=== PATIENT | male | born 1955 | race Caucasian/White ===

== ENCOUNTER 2018-08-25 09:15 | Inpatient (IN) | payer MEDICAID ==
[~2018-08-25] VITALS: Ht 193 cm; Wt 73.9 kg
[2018-08-25] MEDS ORDERED: TRAZODONE HCL150 MG PO (09:38)
[2018-08-25] MEDS ORDERED: LISINOPRIL30 MG PO (09:38)
[2018-08-25] MEDS ORDERED: SEROQUEL400 MG PO (09:38)
[2018-08-25 10:17] LABS: ALBUMIN 5.1 g/dL (3.4-5.0); ANION GAP 22.4 mmol/L (8-16); BILIRUBIN - TOTAL 0.81 mg/dL (0.2-1.3); CALCIUM 10.2 mg/dL (8.5-10.1); CARBON DIOXIDE 23.1 mmol/L (21.0-32.0); CREATININE - SERUM 2.8 mg/dL (0.6-1.3); POTASSIUM - SERUM 3.5 mmol/L (3.5-5.1); PROTEIN - SERUM 9.2 g/dL (6.4-8.2)
[2018-08-25 10:20] LABS: UDS - AMPHET POSITIVE QUAL (NEGATIVE); UDS - BARB NEGATIVE QUAL (NEGATIVE); UDS - BENZO NEGATIVE QUAL (NEGATIVE); UDS - COCAINE POSITIVE QUAL (NEGATIVE); UDS - OPIATE NEGATIVE QUAL (NEGATIVE); UDS - PCP NEGATIVE QUAL (NEGATIVE); UDS - THC NEGATIVE QUAL (NEGATIVE)
[2018-08-25 10:27] LABS: BASOPHILS 0.1 % (0-2); EOSINOPHILS 0.1 % (0-7); HEMOGLOBIN 14.5 g/dL (13.5-17.5); IMMATURE GRANULOCYTES 0.2 % (0-5); LYMPHOCYTES 17.4 % (15-50); MCH 31.5 pg (26.0-34.0); MCHC 36.3 g/dL (31.0-37.0); MCV 86.8 fL (80.0-100.0); MEAN PLATELET VOLUME 10.7 fL (7.4-10.4); MONOCYTES 10.1 % (2-11); NEUTROPHILS 72.1 % (40-80); PLATELET COUNT 335 10x3/uL (130-400); RBC 4.61 10x6/uL (4.20-6.10); RDW 12.5 % (11.5-14.5)
[2018-08-25 10:40] LABS: APPEARANCE CLEAR (CLEAR); COLOR YELLOW (YELLOW); SPECIFIC GRAVITY 1.025 (1.005-1.020)
[2018-08-25 10:42] LABS: BACTERIA FEW /hpf (NONE SEEN); BILIRUBIN NEGATIVE (NEGATIVE); EPITHELIAL CELLS 0-5 /hpf (0-5); GLUCOSE NEGATIVE (NEGATIVE); HYALINE CAST 0-5 /lpf (NONE SEEN); KETONE MODERATE mg/dL (NEGATIVE); MUCUS >1+ /lpf (NONE SEEN); NITRITE NEGATIVE (NEGATIVE); PROTEIN NEGATIVE (NEGATIVE); RED CELLS - URINE OCC /hpf (0-5)
[2018-08-25 16:20] LABS: ALBUMIN 4.1 g/dL (3.4-5.0); BILIRUBIN - TOTAL 0.9 mg/dL (0.2-1.3); CALCIUM 9.1 mg/dL (8.5-10.1); CARBON DIOXIDE 22.3 mmol/L (21.0-32.0); CREATININE - SERUM 2.1 mg/dL (0.6-1.3); POTASSIUM - SERUM 3.3 mmol/L (3.5-5.1); PROTEIN - SERUM 7.5 g/dL (6.4-8.2)
[2018-08-25 17:59] LABS: CREATINE KINASE 5532 UL (21-232)
--- NOTE | 2018-08-25 17:59 | NUR ---
NS BOLUS COMPLETED 042
--- NOTE | 2018-08-25 18:30 | NUR ---
ACCORDING TO DAY SHIFT NURSE STATE:" PT ARRIVED TO M2 1830 WITH HOSPITAL STAFF PT IS ALERT AND ORIENTED.
[2018-08-25 18:39] LABS: CKMB 32.5 U/L (0.0-3.6)
[2018-08-25 20:00] VITALS: BP 130/78
--- NOTE | 2018-08-25 20:14 | NUR ---
PT C/O PAIN IN TUNG AT A LEVEL OF 9. CALLED [facility] SUPERINTENDENT ORDERED PAIN MED FOR PT.
[2018-08-26] VITALS: BP 114/75
--- NOTE | 2018-08-26 00:15 | NUR ---
PT IV INFILTRATED, RESTART IV PLACED IN RIGHT AC ON 1ST ATTEMPT.
--- NOTE | 2018-08-26 03:14 | NUR ---
REST QUIELTY IN BED. EYE CLOSE. CALL LIGHT IN REACH.
[2018-08-26 05:00] VITALS: BP 117/72
--- NOTE | 2018-08-26 06:15 | NUR ---
I have reviewed this patient and I concur with the Shift Assessment completed by the Licensed Practical Nurse today this shift.
--- NOTE | 2018-08-26 06:27 | NUR ---
UA COLLECTED AND SENT IT TO LAB.
--- NOTE | 2018-08-26 07:33 | NUR ---
ROUNDING DONE WITH PATIENT LAYING ON BACK IN STREET CLOTHES AND SHOES. RIGHT FA PIV SEEN WITH NS INFUSING AT 125, LEFT AC PIC SALINE LOCK. ON EP, NO LAB VALUES BACK YET. ON ROOM AIR. ENCOURAGED PATIENT TO PLACE HOSPITAL GOWN ON.
[2018-08-26 08:12] LABS: ALBUMIN 3.4 g/dL (3.4-5.0); ANION GAP 17.7 mmol/L (8-16); BILIRUBIN - TOTAL 0.51 mg/dL (0.2-1.3); CALCIUM 8.6 mg/dL (8.5-10.1); CREATININE - SERUM 1.3 mg/dL (0.6-1.3); MAGNESIUM - SERUM 2.4 mg/dL (1.8-2.4); POTASSIUM - SERUM 3.7 mmol/L (3.5-5.1); PROTEIN - SERUM 6.6 g/dL (6.4-8.2)
--- NOTE | 2018-08-26 08:55 | NUR ---
COMPLAINTS OF PAIN TO LEFT SIDE OF MOUTH. WITH FLASHLIGHT, THERE ARE SOME WHITE PATCHES SEEN WITH ALSO SOME ROTTEN AND BROKEN TEETH. PATIENT IS JEKING IN THE BED STATING THAT HE IS HURTING. CALL PLACED TO [facility] FOR FURTHER ORDERS. AWAITING CALL BACK.
[2018-08-26 08:58] LABS: BASOPHILS 0.1 % (0-2); EOSINOPHILS 0.3 % (0-7); HEMATOCRIT 34.6 % (42.0-54.0); HEMOGLOBIN 12.7 g/dL (13.5-17.5); IMMATURE GRANULOCYTES 0.2 % (0-5); LYMPHOCYTES 18.6 % (15-50); MCH 31.3 pg (26.0-34.0); MCHC 36.7 g/dL (31.0-37.0); MCV 85.2 fL (80.0-100.0); MEAN PLATELET VOLUME 10.3 fL (7.4-10.4); MONOCYTES 9.9 % (2-11); NEUTROPHILS 70.9 % (40-80); PLATELET COUNT 277 10x3/uL (130-400); RBC 4.06 10x6/uL (4.20-6.10); RDW 12.5 % (11.5-14.5); WBC 14.9 10x3/uL (4.8-10.8)
--- NOTE | 2018-08-26 09:21 | NUR ---
[facility] TO CALL BACK WITH NEW ORDERS.
[2018-08-26 09:55] VITALS: BP 113/49
--- NOTE | 2018-08-26 11:11 | NUR ---
IN ASSESSMENT, PATIENT HAS A RED AREA WITH WHITENESS TO RIGHT KNEE. STATES THAT HE DOES NOT KNOW HOW IT GOT THERE.
[2018-08-26 12:49] VITALS: BP 139/76
[2018-08-26 13:26] VITALS: BMI 21.9
--- NOTE | 2018-08-26 13:39 | NUR ---
RESTING QUITELY WITH EYES CLOSED, RESP EVEN. BED ALARM IN USE.
--- NOTE | 2018-08-26 15:40 | NUR ---
PATIENT IS REQUESTING A PAIN PILL FOR HIS TOOTH PAIN. THERE IS NONE ON THE EMAR. PAGE INTO [facility] FOR PAIN PILL. BED ALARM IS ON AND SET. PATIENT WAS ASSISTED TO STAND AT BEDSIDE TO EMPTY HIS BLADDER, VERY JERKY AND UNSTEADY TO HIS FEET. AWAITING CALL BACK, HE STATES HE DOES NOT WANT THE ORAL MOUTHWASH.
--- NOTE | 2018-08-26 15:47 | NUR ---
[facility] TO CALL BACK WITH NEW ORDERS.
--- NOTE | 2018-08-26 17:18 | NUR ---
RESTING WITH EYES CLOSED. SUPPER TRAY ON BEDSIDE TABLE. BED ALARM IS SET AND ON. WILL CONTINUE TO FOLLOW AND ASSESS FOR NEEDS.
[2018-08-26 17:57] VITALS: BP 138/66
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
[2018-08-26 20:00] VITALS: BP 119/69
[2018-08-27] VITALS: BP 145/83
[2018-08-27 04:00] VITALS: BP 153/94
--- NOTE | 2018-08-27 04:39 | NUR ---
I have reviewed this patient and I concur with the Shift Assessment completed by the Licensed Practical Nurse today this shift.
[2018-08-27 06:14] LABS: ALBUMIN 2.9 g/dL (3.4-5.0); ALKALINE PHOSPHATASE 44 U/L (46-116); ALT (SGPT) 43 U/L (10-68); BILIRUBIN - TOTAL 0.37 mg/dL (0.2-1.3); CALCIUM 8.2 mg/dL (8.5-10.1); CARBON DIOXIDE 24.9 mmol/L (21.0-32.0); CHLORIDE - SERUM 110 mmol/L (98-107); GLUCOSE 92 mg/dL (74-106); MAGNESIUM - SERUM 2.3 mg/dL (1.8-2.4); POTASSIUM - SERUM 3.3 mmol/L (3.5-5.1); PROTEIN - SERUM 5.9 g/dL (6.4-8.2); SODIUM 146 mmol/L (136-145)
[2018-08-27 06:15] LABS: CALC OSMOLALITY 291 mosm/kg (275-300); CREATININE - SERUM 0.9 mg/dL (0.6-1.3); UREA NITROGEN 14 mg/dL (7-18); eGFR NON AFRICAN AMERICAN > 90 mL/min (90-120)
--- NOTE | 2018-08-27 07:07 | NUR ---
3.3 SERUM POTASSIUM TREATED ORDERED
--- NOTE | 2018-08-27 09:30 | NUR ---
ASSISTED PATIENT OOB TO RESTROOM. NO DISTRESS. IV FLUIDS INFUSING ORDERED AT THIS TIME.
[2018-08-27 10:08] VITALS: BP 159/103
--- NOTE | 2018-08-27 10:55 | NUR ---
RECEIVED REPORT. ASSUMED CARE OF PATIENT. CALL LIGHT WITHIN REACH. PATIENT RESTING WITH EYES CLOSED. IV FLUIDS INFUSING ORDERED. NO DISTRESS. RESP EVEN AND UNLABORED.
--- NOTE | 2018-08-27 11:16 | NUR ---
ELECTROLYTE PROTOCOL EFFECTIVE, K+ 3.6
--- NOTE | 2018-08-27 12:00 | NUR ---
CONSUMED NO AM MEAL. RESTING WITH EYES CLOSED. DENIES NEEDS. NO DISTRESS. ENCOURAGED PATIENT TO EAT NOON MEAL WHEN DELIVERED.
[2018-08-27 13:50] VITALS: BP 155/85; Ht 193 cm; Wt 73.9 kg
--- NOTE | 2018-08-27 17:24 | NUR ---
MEDICATED FOR TREMORS AT THIS TIME. NO DISTRESS.
[2018-08-27 18:55] VITALS: BP 159/102
--- NOTE | 2018-08-27 19:40 | NUR ---
RECEIVED REPORT, WILL ASSUME CARE OF PT, PT IS SLEEPING, NO DISTRESS NOTICE, BED IS LOW, SRX2, CALL LIGHT IN REACH, WILL CONTINUE PLAN OF CARE
[2018-08-27 20:00] VITALS: BP 159/103
[2018-08-28] VITALS: BP 166/91
--- NOTE | 2018-08-28 03:19 | NUR ---
I have reviewed this patient and I concur with the Shift Assessment completed by the Licensed Practical Nurse today this shift.
[2018-08-28 04:00] VITALS: BP 162/110
--- NOTE | 2018-08-28 07:00 | NUR ---
RECEIVED REPORT. ASSUMED CARE OF PATIENT. CALL LIGHT WITHIN REACH. NO DISTRESS. RESTING WITH EYES CLOSED. RESP EVEN AND UNLABORED. SR UP FOR SAFETY.
--- NOTE | 2018-08-28 08:40 | NUR ---
RESTING IN BED. NO DISTRESS. REFUSED AM MEAL. STATES HE IS NOT HUNGRY. STATES MOUTH PAIN HAS IMPROVED.
[2018-08-28 08:51] VITALS: BP 173/113
[2018-08-28 09:31] LABS: ALBUMIN 3.1 g/dL (3.4-5.0); ALKALINE PHOSPHATASE 53 U/L (46-116); ALT (SGPT) 45 U/L (10-68); BILIRUBIN - TOTAL 0.62 mg/dL (0.2-1.3); CALC OSMOLALITY 286 mosm/kg (275-300); CALCIUM 8.7 mg/dL (8.5-10.1); CARBON DIOXIDE 26.6 mmol/L (21.0-32.0); CHLORIDE - SERUM 107 mmol/L (98-107); CREATININE - SERUM 0.9 mg/dL (0.6-1.3); GLUCOSE 106 mg/dL (74-106); POTASSIUM - SERUM 3.3 mmol/L (3.5-5.1); PROTEIN - SERUM 6.4 g/dL (6.4-8.2); SODIUM 145 mmol/L (136-145); eGFR NON AFRICAN AMERICAN > 90 mL/min (90-120)
[2018-08-28 09:32] LABS: UREA NITROGEN 8 mg/dL (7-18)
--- NOTE | 2018-08-28 10:28 | NUR ---
ELECTROLYTE PROTOCOL INITIATED AT THIS TIME FOR K+ (3.3)
[2018-08-28 12:07] VITALS: BP 152/90
--- NOTE | 2018-08-28 14:22 | NUR ---
IN ROOM TO ASK PT WHO HIS PCP IS. HE STATES IT IS A PHYSICIAN AT [facility] AND WILL PLAN FOLLOW UP THERE.
--- NOTE | 2018-08-28 15:35 | NUR ---
1520 20 GAUGE IV REMOVED FROM RIGHT AC. CATHETER TIP INTACT. NO BLEEDING FROM SITE. 2X2 GAUZE APPLIED AND SECURED WITH BANDAID. TOLERATED IV REMOVAL WELL. ALSO, 20 GAUGE IV REMOVED FROM LEFT WRIST. CATHETER TIP INTACT. NO BLEEDING FROM SITE. 2X2 GAUZE APPLIED AND SECURED WITH BANDAID. TOLERATED IV REMOVAL WELL. PATIENT GIVEN DISCHARGE INSTRUCTIONS AT THIS TIME. VERBALIZED UNDERSTANDING OF ALL INSTRUCTIONS PROVIDED. PATIENT STATES HE DROVE TO THE HOSPITAL AND HIS CAR IS IN THE PARKING LOT AND HE WILL DRIVE HIMSELF HOME.
--- NOTE | 2018-08-28 16:21 | NUR ---
PATIENT HAS BEEN DISCHARGED, GOT HIMSELF DRESSED AND SITTING IN A WHEELCHAIR WAITING TO BE WHEELED DOWNSTAIRS. PATIENT STATES HE NOW DOESN'T FEEL WELL ENOUGH TO DRIVE HOME AND HE DOESN'T HAVE ANY FAMILY OR FRIENDS THAT CAN COME AND HELP HIM. CASE MANAGEMENT CONTACTED.
--- NOTE | 2018-08-28 16:24 | NUR ---
PATIENT BEING SENT HOME IN A TAXIT PER CASE MANAGEMENT.
--- NOTE | 2018-08-28 16:40 | NUR ---
PATIENT LEFT UNIT VIA WHEELCHAIR WITH ALL PERSONAL BELONGINGS. PATIENT IN NO DISTRESS UPON LEAVING UNIT. PATIENT ASSISTED DOWNSTAIR AND LEFT HOSPITAL IN [place]AXI TO HIS ADDRESS LISTED ON CHART.
--- NOTE | 2018-08-29 08:44 | MORECARE ---
CASE MANAGEMENT DISCHARGE SUMMARY PATIENT: NIALL LANG UNIT: [id number] ADM DATE: 08/25/18 AGE: 63 : [birth year] SEX: M ROOM/BED: D.2136 AUTHOR: SAMEER SCHMIDT PHYSICIAN: REFERRING PHYSICIAN: CONNIE HUNTLEY MD DATE OF SERVICE: 08/29/18 Discharge Plan Patient Name: NIALL LANG Facility: [facility]:[place] : 1955 Planned Disposition: Home Anticipated Discharge Date: 08/28/18 Discharge Date: 08/28/2018 Expected LOS: 3 Initial Reviewer: [email or web address] Initial Review Date: 08/29/2018 Generated: 08/29/18 9:44 am Comments DCP- Discharge Planning Updated by [email or web address]: Urmila Wyatt on 08/28/18 3:[address] Patient Name: NIALL LANG Admission Status: ER Accout number: [id number] Admission Date: 08-25-2018 : 1955 Admission Diagnosis: Attending: YUKO, Current LOS: 3 Anticipated DC Date: Planned Disposition: Primary Insurance: MEDICAID [place] Discharge Planning Comments: CM CONSULT FOR RIDE FOR PT. PTS CONTACT LIVES IN [place] .HE STATES HE HAS NO ONE ELSE. CM GOT [employer] TO [employer] WITH A CHARGE OF 8.75 STATED BY HS CoridonI. Advertising Strategist: Urmila Wyatt Patient Name: NIALL LANG Page [phone] at 0844 All edits/amendments must be made on the electronic document DICTATION DATE: 08/29/18 0843 DICTATING TRANSCRIBING MACHINE SERVICER: MARVIN 08/29/18 0843 RPT#: [id number] DC DATE:08/28/18 STATUS: DIS IN [facility] [address] [place] [address] END OF REPORT
--- NOTE | 2018-08-31 11:19 | EC ---
PATIENT:NIALL LANG DATE OF SERVICE: 08/25/18 SEX: M MEDICAL RECORD: [id number] DATE OF : [birth year] LOCATION:D.M2 D.213 AGE OF PATIENT: 63 ADMISSION DATE: 08/25/18 REFERRING PHYSICIAN: INTERPRETING PHYSICIAN: RONIT FAY MD ECHOCARDIOGRAM REPORT ECHO CHARGES 4 ECHO COMPLETE Date: 08/26/18 CLINICAL DIAGNOSIS: LEUDOCYOTSIS/ METH/COCAINE USE/ ASSESS FOR VEGATATION ECHOCARDIOGRAPHIC MEASUREMENTS (adult normal given) AC root (d.<3.7cm) 2.9 cm LV Septum d (<1.2 cm> 1.5 cm Valve Excursion 1.9 cm LV Septum (systole) 1.9 cm Left Atria (s.<4.0cm> 3.1 cm LVPW d(<1.2cm) 1.5 cm RV (d.<2.3cm) 3.4 cm LVPW (sytole) 1.9 cm LV diastole(<5.6CM) 4.0 cm MV E-F(>70mm/sec) cm LV systole 2.2 cm LVOT Diameter 1.8 cm MV exc.(>10mm) 1.5 cm Est.ejection fraction (50-75%) % DOPPLER: LVIT cm/sec A 88.0 cm/sec E 74.0 cm/sec LA cm/sec RVSP 22 mmHg LVOT 92 cm/sec AOP1/2T m/s Asc. Ao 102 cm/sec RVOT 52 cm/sec RA cm/sec PA 115 cm/sec AV Gradient Peak 4.13 mmHg AV Mean 2.35 mmHg AV Area 2.3 cm MV Gradient Peak 5.44 mmHg MV Mean 1.99 mmHg MV Area cm COMMENTS: Hoop Coiler: 2 JANNY MONTESINOS Psych Rn: 1 Dr. Fay TAPE# PACS Pericardial Effusion N DATE OF SERVICE: FINDINGS: 1. Left ventricular chamber size is within normal limits. Left ventricular systolic function is normal. Overall ejection fraction 55% to 60%. 2. Left atrium, right atrium and right ventricular chamber size is within normal limits. 3. Valvular structures have normal structure and motion. 4. Doppler interrogation reveals no significant valvular insufficiency or stenosis. Pulmonary systolic pressure is estimated at 22 mmHg. ECHOCARDIOGRAM REPORT [id number] NIALL LANG 5. No evidence of pericardial effusion or left ventricular thrombus. TRANSINT:[id number] Voice Confirmation ID: [id number] DOCUMENT ID: [id number] RONIT FAY MD at 1119 CC: [id number] DICTATION DATE: 08/26/18 1309 DISTRICT FIRE MANAGEMENT OFFICER: 08/26/18 1546 DIS IN 08/28/18 [facility] [address] [place] [place] [id number]
== END 2018-08-28 17:31 | disposition home or self-care (01) | DRG 683 ==
LOC: D.ER 09:15 → D.M2 17:16 → OBSVTIME 17:17 → D.M2 17:18
PROVIDERS: Family Medicine; ADMIT Family Medicine; ATTEND Family Medicine
DX: N17.9 Acute kidney failure, unspecified (principal); F10.239 Alcohol dependence with withdrawal, unspecified; F14.10 Cocaine abuse, uncomplicated; E87.6 Hypokalemia; I10 Essential (primary) hypertension

== ENCOUNTER 2019-05-24 13:00 | Observation (INO) | payer MEDICAID ==
[2019-05-24] VITALS (7 sets, daily range): BP systolic 179–193; BP diastolic 108–116
[~2019-05-24] VITALS: Ht 193 cm; Wt 77.3 kg
--- NOTE | ~2019-05-24 | HEMODYNAMI ---
PATIENT:NIALL LANG MEDICAL RECORD: [id number] : 59 LOCATION:[facility] D.5 ADMISSION DATE: 05/24/19 Generatedon:05/25/20199:49 Patient name: NIALL LANG Patient #: [id number] SSN: [id number] : 1955 Date of study: 05/25/2019 Page: Of Hemodynamic Procedure Report Patient Data Patient Demographics Procedure consent was obtained First Name: NIALL Gender: Male Last Name: PRECIOUS : 1955 Patient #: [id number] Age: 63 year(s) Race: SSN: [id number] Additional ID: [id number] Contact details [address]: [address] [place] [address] State: [place] City: [place] Zip code: [address] Past Medical History Allergies Allergen Reaction Date Comments Reported Other allergy 05/25/2019 wasps Admission Admission Data Admission Date: 05/24/2019 Admission Time: 13:00 Arrival Date: 05/25/2019 Arrival Time: 0:00 Admit Source: Other Room #: D.2115 Height (in.): 76 BSA: 2.07 (m2) Height (cm.): 193.04 BMI: 20.69 (kg/m2) Weight (lbs.): 170 Weight (kg.): 77.11 Lab Results Lab Result Date: 05/25/2019 Lab Result Time: 0:00 Biochemistry Name Units Result Min Max BUN mg/dl 19 --(----)*- 7 18 Creatinine mg/dl 1.4 --(----)*- 0.6 1.3 eGFR ml/min 55 *-(----)-- 90 120 NONAFRICAN CBC Name Units Result Min Max Hematocrit % 38.1 *-(----)-- 42 54 Hemoglobin g/dl 13 -*(----)-- 13.5 17.5 Procedure Procedure Types Cath Procedure Diagnostic Procedure C [facility] w/Coronaries Sedation Charges Moderate Sedation up to 15 minutes Procedure Description Procedure Date Procedure Date: 05/25/2019 Procedure Start Time: 9:30 Procedure End Time: 9:47 Procedure Staff Name Function Constantine Steiner MD Performing Physician Mercedes Gates RT Monitor Kirsten Azevedo RT Scrub Francesco Sagastume RN Nurse Josef Correa RT Electrician Assistant Procedure Data Cath Procedure Fluoroscopy Diagnostic fluoroscopy Total fluoroscopy Time: 4.1 time: 4.1 min min Diagnostic fluoroscopy Total fluoroscopy dose: 523 dose: 523 mGy mGy Contrast Material Contrast Material Type Amount (ml) Isovue 300 77 Entry Location Entry Primary Successful Side Size Upsize Upsize Entry Closure Julien ccessful Closure Location (Fr) 1 (Fr) 2 (Fr) Remarks Device Remarks Radial Right 6 Fr Mechanical artery Short Compression Estimated blood loss: 5 ml Diagnostic catheters Device Type Used For End Catheter Placement DIAGNOSTIC Axel 110cm Procedure 5Fr catheter ([id number]) DIAGNOSTIC Madison 110cm 5 Left Coronary Fr catheter ([id number]) Angiography Procedure Complications No complications Procedure Medications Medication Administration Route Dosage 0.9% NaCl I.V. 100 ml/hr Oxygen etCO2 Nasal cannula 2 l/min Heparin Flush Bag added to field 2 bags (1000units/500ml NS) Lidocaine 2% added to field 20 Radial Cocktail added to field 1 syringe (Verapamil 2mg/Nitro 400mcg/Heparin 1500units) Versed I.V. 1 mg Fentanyl I.V. 50 mcg Radial Cocktail I.A. 1 syringe (Verapamil 2mg/Nitro 400mcg/Heparin 1500units) Hemodynamics Rest BSA: 2.07 (m2) HGB: 13 (g/dl) O2 Consumption: Estimated: 234.08 (ml/min) O2 Cons umption indexed: Estimated:113.08 (ml/min/m) Heart Rate: 59 (bpm) Pressure Samples Time Site Value (mmHg) Purpose Heart Use Rate(bpm) 9:33 LV 102/17,26 Snapshot 62 9:33 LV 104/20,28 Snapshot 65 Gradients Valve Time Site Site Mean SEP/DFP Peak To Heart Use 1 2 (mmHg) (sec/min) Peak Rate (mmHg) (bpm) Aortic 9:34 LV AO 64 Snapshots Pre Cath Intra NCS Post Cath Vital Signs Time Heart Resp SPO2 etCO2 NIBP Rhythm Pain Sedation Rate (ipm) (%) (mmHg) (mmHg) Status Level (bpm) 9:13:22 64 13 96 0 124/73(91) NSR 0 (11) 10(A) , No pain 9:17:32 63 30 98 30.5 111/67(82) NSR 0 (11) 10(A) , No pain 9:21:40 52 14 97 0 107/60(87) NSR 0 (11) 10(A) , No pain 9:25:46 48 14 97 22.3 97/60(74) NSR 0 (11) 10(A) , No pain 9:29:48 62 10 95 31.2 109/64(80) NSR 0 (11) 9(A) , No pain 9:33:55 51 11 98 20.8 78/50(73) NSR 0 (11) 9(A) , No pain 9:37:53 60 19 94 28.3 88/52(68) NSR 0 (11) 9(A) , No pain 9:41:55 52 10 95 1.4 100/55(80) NSR 0 (11) 10(A) , No pain 9:45:56 65 10 95 39.5 108/63(85) NSR 0 (11) 10(A) , No pain Medications Time Medication Route Dose Verified Delivered Reason Notes Effectiveness by by 9:11:37 0.9% NaCl I.V. 100 Francesco Francesco Per ml/hr Tanika Sagastume physician RN RN 9:11:45 Oxygen etCO2 2 l/min Francesco Francesco for low 02 Nasal Lorigan Lorigan sats cannula RN RN 9:11:56 Heparin Flush added 2 bags Francesco Francesco used for Bag to Lorigan Lorigan procedure (1000units/500ml field RN RN NS) 9:12:08 Lidocaine 2% added 20ml Francesco Francesco for local to vial Lorigan Lorigan anesthetic field RN RN 9:15:47 Radial Cocktail added 1 Francesco Francesco used for (Verapamil to syringe Lorigan Lorigan procedure 2mg/Nitro field RN RN 400mcg/Heparin 1500units) 9:27:20 Versed I.V. 1 mg Francesco Francesco for sedation Tanika Sagastume RN RN 9:27:28 Fentanyl I.V. 50 mcg Francesco Francesco for sedation Tanika Sagastume RN RN 9:33:00 Radial Cocktail I.A. 1 Francesco Constantine for (Verapamil syringe Tanika Steiner MD vasodilation 2mg/Nitro RN 400mcg/Heparin 1500units) Procedure Log Time Note 8:51:47 Diagnostic Cath Status : Elective 8:52:10 Admit Source: Other 8:52:15 Procedure Status Elective Heart Cath (OP). 8:52:24 Josef Correa RT(R) (CV) sent for patient. Start room use. 8:52:26 Time tracking: Regular hours (M-F 7:00 - 5:00) 8:52:32 Plan of Care:Hemodynamics will remain stable., Cardiac rhythm will remain stable., Comfort level will be maintained., Respiratory function will remain adequate., Patient/ family verbilizes understanding of procedure., Procedure tolerated without complication., Recovers from procedure without complications.. 9:03:02 Patient received from Med II to CCL 1 Alert and oriented. Tansferred to table in Supine position. 9:03:09 Signed procedure consent form obtained from patient. 9:03:10 Warm blankets applied, and jocelyn hugger turned on for patient comfort. 9:03:11 Correct patient and procedure confirmed by team. 9:03:12 ECG and BP/O2 sat monitors applied to patient. 9:03:25 Arrival Date: 05/25/2019 12:00:00 AM 9:03:56 Patient Height : 76 inches 9:04:12 Patient Weight : 170 lbs 9:11:37 0.9% NaCl 100 ml/hr I.V. was administered by Francesco Sagastume RN; Per physician; Verbal order read back and verified. 9:11:45 Oxygen 2 l/min etCO2 Nasal cannula was administered by Francesco Sagastume RN; for low 02 sats; Verbal order read back and verified. 9:11:56 Heparin Flush Bag (1000units/500ml NS) 2 bags added to field was administered by Francesco Sagastume RN; used for procedure; Verbal order read back and verified. 9:12:08 Lidocaine 2% 20ml vial added to field was administered by Francesco Sagastume RN; for local anesthetic; Verbal order read back and verified. 9:12:18 Vital chart was started 9:13:17 Baseline sample Acquired. 9:13:22 Rhythm: sinus rhythm 9::25 Full Disclosure recording started 9::26 9:13:34 H&P Date Dictated: 05/25/2019 Within 30 days and on chart.. 9:13:36 Pre-procedure instructions explained to patient. 9:13:37 Pre-op teaching completed and patient verbalized understanding. 9:13:40 Family unavailable. 9:13:46 Patient NPO since Midnight. 9:14:00 Patient allergic to Other allergywasps 9:14:05 Is the patient allergic to Iodine/contrast media? No. 9:14:09 Was the patient premedicated? Yes 9:14:12 Is patient on blood thinner?No 9:14:14 Patient diabetic? No. 9:14:16 ----Pre-sedation anethsthesia assessment.---- 9:14:20 Previous problem with sedation/anesthesia? No ? 9:14:23 Snore? Yes 9:14:26 Sleep apnea? No 9:14:30 Deviated septum? No 9:14:33 Opens mouth fully? Yes 9:14:37 Sticks out tongue? Yes 9:14:42 Airway obstruction? No ? 9:14:45 Dentures? No ? 9:15:47 Radial Cocktail (Verapamil 2mg/Nitro 400mcg/Heparin 1500units) 1 syringe added to field was administered by Francesco Sagastume RN; used for procedure; Verbal order read back and verified. 9:16:25 Pre procedure: right dorsailis pedis pulse 2+ Normal; easily identifiable; not easily obliterated 9:16:31 Modified Vineet's test Ulnar > 7 seconds. 9:17:00 IV patent on arrival in left antecubital with 0.9% NaCl at [facility]. 9:17:49 Lab Result : BUN 19 mg/dl 9:17:49 Lab Result : Creatinine 1.4 mg/dl 9:17:49 Lab Result : eGFR NONAFRICAN 55 ml/min 9:17:49 Lab Result : Hemoglobin 13 g/dl 9:17:49 Lab Result : Hematocrit 38.1 % 9:17:56 Lab results completed and on chart. 9:18:03 Right Radial & Right Groin area was prepped with chlora-prep and draped in sterile fashion 9:18:05 Alarms reviewed by R. N. 9:18:06 Sharps counted by scrub and verified by R.N. 9:18:11 Use device set Radial Dx or PCI 9:18:13 ACIST Syringe (26749) opened to sterile field. 9:18:14 Medline Cath Pack ([id number]) opened to sterile field. 9:18:14 Bag Decanter (2002S) opened to sterile field. 9:18:15 ACIST Hand Control (71560) opened to sterile field. 9:18:16 ACIST Manifold (79469) opened to sterile field. 9:18:19 MBrace Wrist Support ([id number]) opened to sterile field. 9:18:25 NEEDLE Cook 21G 4cm Radial (J25086) opened to sterile field. 9:18:26 EMERALD Guide Wire (570-528) opened to sterile field. 9:18:29 SHEATH 6FR RAIN ([id number]) opened to sterile field. 9:24:56 Risk of Mortality: 0.5 9:25:01 Risk of blood transfusion: 2.9 9:25:06 Risk of KRISTIE: 5.9 9:25:58 Physician arrived 9:25:59 --------ALL STOP TIME OUT------ 9:26:00 Final Timeout: patient, procedure, and site verified with staff and physician. All members of the team are in agreement. 9:26:04 Right Radial & Right Groin site verified by team. 9:26:11 Fire Safety Assessment: A--An alcohol-based skin anteseptic being used preoperatively., C--Open oxygen or nitrous oxide is being used., D--An ESU, laser, or fiber-optic light is being used. 9:26:16 Physical assessment completed. ASA score P 2 - A patient with mild systemic disease as per Constantine Steiner MD. 9:26:23 3a) 45-59 Moderately reduced kidney function. 9:26:29 Maximum allowable contrast dose (3.7 X eGFR X 0.75)152 ml. 9:26:36 Sedation plan: IV Moderate Sedation Medication:Versed, Fentanyl 9:27:20 Versed 1 mg I.V. was administered by Francesco Sagastume RN; for sedation; Verbal order read back and verified. 9:27:28 Fentanyl 50 mcg I.V. was administered by Francesco Sagastume RN; for sedation; Verbal order read back and verified. 9:29:55 Procedure started. 9:30:03 Local anesthetic to right radial artery with Lidocaine 2% by Constantine Steiner MD.INITIAL ACCESS ONLY 9:31:49 A 6 Fr Short sheath was inserted into the Right Radial artery 9:32:12 A DIAGNOSTIC Axel 110cm 5Fr catheter (855118) was advanced over the wire and used for Procedure. 9:32:54 Injector settings: Ml/sec: 5, Volume: 15, 9:33:00 Radial Cocktail (Verapamil 2mg/Nitro 400mcg/Heparin 1500units) 1 syringe I.A. was administered by Constantine Steiner MD; for vasodilation; Verbal order read back and verified. 9:33:16 LV gram done using FENG 9:34:01 EF : 50 % 9:34:22 LV hemodynamics recorded. 9:35:19 RCA angiography performed. 9:35:34 Injector settings: Ml/sec: 3, Volume: 6, 9:36:25 Catheter removed. 9:36:37 A DIAGNOSTIC Madison 110cm 5 Fr catheter (044274) was advanced over the wire and used for Left Coronary Angiography. 9:38:26 LCA angiography performed. 9:38:39 Injector settings: Ml/sec: 3, Volume: 6, 9:42:16 ACCDominant side:Right 9:43:44 Catheter removed. 9:44:11 ZEPHYR REGULAR TR BAND (888983) opened to sterile field. 9:44:17 Procedure ended.(Physican Out) 9:44:25 Sheath removed intact; hemostasis achieved with Mechanical Compression to the Right Radial artery. 9:44:46 Contrast amount:Isovue 300 77ml. 9:44:50 Maximum allowable dose exceeded? No. 9:45:00 Fluoroscopy time 04.10 minutes. 9:45:08 Fluoroscopy dose: 523 mGy 9:45:08 Flurop Dose total: 523 9:45:16 Dose Area Product 04984 mGy/cm. 9:45:19 Sharps counted by scrub and verified by GatoN. 9:45:23 [place] band inflated with 10cc of air. 9:45:26 Insertion/operative site no bleeding no hematoma. 9:45:33 Post right radial artery:stable 9:45:36 Post Procedure Pulses reassessed and unchanged 9:45:41 Post-procedure physical assessment completed. ASA score P 2 - A patient with mild systemic disease as per Constantine Steiner MD. 9:45:47 Post procedure rhythm: unchanged. 9:45:51 Estimated blood loss: 5 ml 9:45:53 Post procedure instruction explained to patient.Patient verbalizes understanding. 9:45:54 Patient needs reinforcement of post procedure teaching. 9:46:38 Procedure type changed to Cath procedure, Diagnostic procedure, LHC, [facility] w/Coronaries, Sedation Charges, Moderate Sedation up to 15 minutes 9:46:41 Procedure and supply charges have been captured, reviewed, submitted and are correct. 9:46:49 Procedure Complication : No complications 9:46:53 Vital chart was stopped 9:46:56 [facility] Findings: mild to moderate CAD (<70%) 9:47:01 Operative report dictated upon procedure completion. 9:47:03 See physician's report for complete and final results. 9:47:08 Report given to [facility]. 9:47:12 Patient transfered to [facility] with Bed. 9:47:22 Procedure ended. 9:47:22 Full Disclosure recording stopped 9:47:26 End room use (Document Last) Device Usage Item Name Manufacture Quantity Catalog Hospital Part Current Minima l Lot# / Number Charge Number Stock Stock Serial# Code ACIST Acist 1 32981 518598 [id number] [id number] 20 Syringe Medical (97315) Systems Inc Medline Medline 1 [id number] 849119 59215 256293 5 Cath Pack ([id number]) Bag Microtek 1 098320 62159 942933 5 Decanter Medical Inc. () ACIST Hand Acist 1 47508 146184 029808 757360 5 Control Medical (63359) Systems Inc ACIST Acist 1 01196 221943 490064 552294 5 Manifold Medical (66396) Systems Inc MBrace Advanced 1 140-0250-00 336793 94657 023546 5 Wrist Vascular Support Dynamics ([id number]) NEEDLE Culture Kitchen 1 K33519 887842 771209 530669 5 21G 4cm Radial (V07843) EMERALD Cardinal 1 502-455 129531 946185 892984 5 Guide Wire Health (502-455) SHEATH 6FR Cardinal 1 0115646 982571 9820003 454119 5 [facility] Health (2515430) DIAGNOSTIC Terumo 1 40-5023 738732 357029 340805 5 Axel 110cm 5Fr catheter (248855) DIAGNOSTIC Terumo 1 40-5013 508426 146426 920901 5 Madison 110cm 5 Fr catheter (365898) ZEPHYR Cardinal 1 901944 866231 7725764 812788 5 REGULAR TR Health BAND (451608) Signature Audit [place] Stage Time Signature Unsigned Intra-Procedure 05/25/2019 Mercedes 9:48:39 AM Yajaira RT(R) (CV) Intra-Procedure 05/25/2019 Francesco 9:49:10 AM Tanika FERNANDEZ Intra-Procedure 05/25/2019 Constantine Steiner MD 9:49:42 AM [facility] [address] [place] [address]
[~2019-05-24 13:00] MED LIST: LISINOPRIL30 MG PO; SEROQUEL400 MG PO; TRAZODONE HCL150 MG PO
[2019-05-24 13:40] LABS: CALC OSMOLALITY 282 mosm/kg (275-300); CALCIUM 9.2 mg/dL (8.5-10.1); CARBON DIOXIDE 30.9 mmol/L (21.0-32.0); CHLORIDE - SERUM 106 mmol/L (98-107); CREATININE - SERUM 1.1 mg/dL (0.6-1.3); GLUCOSE 95 mg/dL (74-106); POTASSIUM - SERUM 3.7 mmol/L (3.5-5.1); SODIUM 142 mmol/L (136-145); UREA NITROGEN 13 mg/dL (7-18); eGFR NON AFRICAN AMERICAN 72 mL/min (90-120)
[2019-05-24 13:53] LABS: BASOPHILS 0.4 % (0-2); EOSINOPHILS 0.4 % (0-7); HEMATOCRIT 42.4 % (42.0-54.0); HEMOGLOBIN 14.6 g/dL (13.5-17.5); IMMATURE GRANULOCYTES 0.1 % (0-5); LYMPHOCYTES 17.1 % (15-50); MCH 31.3 pg (26.0-34.0); MCHC 34.4 g/dL (31.0-37.0); MEAN PLATELET VOLUME 10.3 fL (7.4-10.4); MONOCYTES 9.5 % (2-11); NEUTROPHILS 72.5 % (40-80); PLATELET COUNT 258 10x3/uL (130-400); RBC 4.66 10x6/uL (4.20-6.10); RDW 12.5 % (11.5-14.5); WBC 8.1 10x3/uL (4.8-10.8)
[2019-05-24 13:57] LABS: ALBUMIN 4.1 g/dL (3.4-5.0); ALKALINE PHOSPHATASE 67 U/L (30-120); ALT (SGPT) 15 U/L (10-68); BILIRUBIN - TOTAL 0.26 mg/dL (0.2-1.3); CKMB 0.5 U/L (0.0-3.6); CREATINE KINASE 63 UL (21-232); PROTEIN - SERUM 7.9 g/dL (6.4-8.2)
[2019-05-24 13:58] LABS: TROPONIN-I < 0.017 ng/mL (0.000-0.060)
[2019-05-24 16:57] LABS: CHOL - HDL RATIO 2.8 ratio (2.3-4.9); LDL-HDL RATIO 1.1 ratio (1.5-3.5)
--- NOTE | 2019-05-24 20:10 | NUR ---
PATIENT ARRIVED TO FLOOR VIA STRETCHER. PATIENT IS ALERT AND ORIENTED, RESTING COMFORTABLY IN BED. RESPIRATIONS ARE EVEN AND UNLABORED. NO S/S OF DISTRESS. NO C/O PAIN. PATIENT GIVEN SUPPER TRAY. CALL LIGHT WITHIN REACH. WILL CPOC.
[2019-05-24] MEDS ORDERED: SEROQUEL400 MG PO (20:32)
[2019-05-25] VITALS: BP 131/79
[2019-05-25] LABS: CKMB 0.5 U/L (0.0-3.6); CREATINE KINASE 58 UL (21-232)
[2019-05-25 00:01] LABS: TROPONIN-I < 0.017 ng/mL (0.000-0.060)
[2019-05-25 00:03] VITALS: BP 140/92; Ht 193 cm; Wt 77.3 kg
[2019-05-25 04:00] VITALS: BP 132/77
[2019-05-25 06:33] LABS: BASOPHILS 0.4 % (0-2); EOSINOPHILS 0.9 % (0-7); HEMATOCRIT 38.1 % (42.0-54.0); IMMATURE GRANULOCYTES 0.1 % (0-5); LYMPHOCYTES 30.4 % (15-50); MCH 30.7 pg (26.0-34.0); MCHC 34.1 g/dL (31.0-37.0); MCV 90.1 fL (80.0-100.0); MEAN PLATELET VOLUME 10.4 fL (7.4-10.4); MONOCYTES 10.4 % (2-11); NEUTROPHILS 57.8 % (40-80); PLATELET COUNT 239 10x3/uL (130-400); RBC 4.23 10x6/uL (4.20-6.10); RDW 12.6 % (11.5-14.5); WBC 8.2 10x3/uL (4.8-10.8)
[2019-05-25 06:53] LABS: APTT 27.2 SECONDS (22.8-39.4); INR 1.08 (0.85-1.17)
[2019-05-25 06:55] LABS: ANION GAP 13.5 mmol/L (8-16); CALCIUM 8.9 mg/dL (8.5-10.1); PHOSPHOROUS 4.5 mg/dL (2.5-4.9); POTASSIUM - SERUM 3.5 mmol/L (3.5-5.1)
[2019-05-25 07:01] LABS: CREATININE - SERUM 1.4 mg/dL (0.6-1.3)
--- NOTE | 2019-05-25 07:15 | NUR ---
RECEIVED PT IN BED EYES CLOSED RESP UNLABORED SKIN W/D COLOR WNL NAD NOTED
--- NOTE | 2019-05-25 08:55 | NUR ---
TO [facility] VIA BED NAD NOTED
[2019-05-25 08:57] VITALS: BP 100/61
--- NOTE | 2019-05-25 10:01 | NUR ---
RECEIVED PT BACK FROM OCCUPATIONAL THERAPY PROGRAM DIRECTOR VIA BED IN STABLE CONDITION VSS PPP X4 ZEPHER BAND INTACT TO RT WRIST NO S/S OF BLEEDING NOTED WILL CONTINUE TO MONITOR
[2019-05-25 12:02] VITALS: BP 100/63
[2019-05-25] MEDS ORDERED: NORVASC5 MG PO (13:51)
[2019-05-25] MEDS ORDERED: PROTONIX40 MG PO (13:51)
[2019-05-25] MEDS ORDERED: METOPROLOL TART50 MG PO (13:51)
[2019-05-25 17:07] VITALS: BP 136/79
--- NOTE | 2019-05-25 18:18 | MORECARE ---
CASE MANAGEMENT DISCHARGE SUMMARY PATIENT: NIALL LANG UNIT: [id number] ADM DATE: 05/24/19 AGE: 63 : [birth year] SEX: M ROOM/BED: D.3292 AUTHOR: BRAYAN,DOC PHYSICIAN: REFERRING PHYSICIAN: GEORGE LOREDO MD DATE OF SERVICE: 05/25/19 Discharge Plan Patient Name: NIALL LANG Facility: [facility]:[place] : 1955 Planned Disposition: Home Anticipated Discharge Date: 05/25/19 Discharge Date: Expected LOS: 1 Initial Reviewer: [email or web address] Initial Review Date: 05/25/2019 Generated: 05/25/19 7:18 pm Comments DCP- Discharge Planning Updated by [email or web address]: Jordy Smith on 05/25/19 5:[address] Patient Name: NIALL LANG Admission Status: ER Accout number: [id number] Admission Date: 05-24-2019 : 1955 Admission Diagnosis: Attending: GEORGE LOREDO Current LOS: 1 Anticipated DC Date: 05-25-2019 Planned Disposition: Home Primary Insurance: MEDICAID [place] Discharge Planning Comments: CM ADVISED BY NURSE THAT PT STATES HAVING NO RIDE HOME TODAY. CM MET WITH PT IN ROOM TO DISCUSS DISCHARGE PLANNING AND NEEDS. PT REPORTS LIVING AT HOME INDEPENDENTLY AND ALONE AT [facility]. PT HAS NO MEDICAL EQUIPMENT AND NO OUTSIDE SERVICES ASSISTING IN THE HOME. CM DISCUSSED AVAILABILITY OF HOME HEALTH, REHAB SERVICES AND MEDICAL EQUIPMENT. PT DENIES DISCHARGE NEEDS, REPORTS HAVING NO RIDE HOME TO PICK HIM UP FOR DISCHARGE HOME. CM OFFERED TO CALL PT'S EMERGENCY CONTACT FOR ASSISTANCE, PT STATES SHE GETS OFF WORK AT 1000 PM TONIGHT. CM ADVISED THAT SHE MAY KNOW SOMEONE ELSE THAT MAY ASSIST. PT DECLINED ASSISTANCE. PT REPORTS NOT HAVING [facility] FOR TAXI HOME, CM ADVISED THAT THE HOSPITAL PROVIDED PT TAXI THE LAST VISIT AND THAT PT WILL NEED TO WORK ON HIS PERSONAL SUPPORT SYSTEM FOR ASSISTANCE IN TIMES OF NEED. PT REPORTS UNDERSTANDING AND THINKS HE CAN GET A RIDE HOME TODAY. CM ADVISED THAT HIS FRIEND CAN PICK HIM UP AFTER SHE GETS OFF FROM WORK TONIGHT AND PT CAN STILL GET HOME. PT REPORTS UNDERSTANDING. BEDSIDE NURSE NOTIFIED. Addictions Counselor Assistant: Jordy Smith DCPIA - Discharge Planning Initial Assessment Updated by [email or web address]: Jordy Smith on 05/25/19 6:13 pm * Is the patient Alert and Oriented? Yes * How many steps to enter\exit or inside your home? NONE * PCP [facility] * Pharmacy [facility] * Preadmission Environment Home Alone * ADLs Independent * Equipment None * Other Equipment NO MEDICAL EQUIPMENT PROVIDER PREFERENCE * List name and contact numbers for known caregivers / representatives who currently or will assist patient after discharge: MAXIMINO RODRIGUEZ, FRIEND, * Verbal permission to speak to the caregivers and representatives has been obtained from the patient. N/A * Community resources currently utilized None * Please name any agencies selected above. NONE * Additional services required to return to the preadmission environment? No * Can the patient safely return to the preadmission environment? Yes * Has this patient been hospitalized within the prior 30 days at any hospital? No Patient Name: NIALL LANG Page [phone] at 1818 All edits/amendments must be made on the electronic document DICTATION DATE: 05/25/191817 TEST TUBE MAKER: MARVIN 05/25/191817 RPT#: [id number] LA DATE: STATUS: REG [facility] [address] [place] [address] END OF REPORT
== END 2019-05-25 19:25 | disposition home or self-care (01) ==
LOC: D.ER 13:00 → D.M2 13:00 → OBSVTIME 15:40 → D.M2 15:40 → D.ER 16:56 → EDSTATUS 16:57 → D.M2 05-25 19:25 → EDSTATUS 05-26 09:30
PROVIDERS: Emergency Medicine; Internal Medicine Cardiovascular Disease; ADMIT Internal Medicine Nephrology; ATTEND Internal Medicine Nephrology
DX: I20.0 Unstable angina (principal); I10 Essential (primary) hypertension; K21.9 Gastro-esophageal reflux disease without esophagitis; F17.203 Nicotine dependence unspecified, with withdrawal; F41.9 Anxiety disorder, unspecified

== ENCOUNTER 2019-05-27 14:24 | Emergency (ER) | payer MEDICAID ==
[~2019-05-27] VITALS: Ht 193 cm; Wt 84.1 kg
[~2019-05-27 14:24] MED LIST changes: +METOPROLOL TART50 MG PO; +NORVASC5 MG PO; +PROTONIX40 MG PO
[2019-05-27 14:33] VITALS: Ht 193 cm; Wt 84.1 kg
[2019-05-27 15:20] VITALS: BP 142/86
== END 2019-05-27 15:21 | disposition home or self-care (01) ==
LOC: D.ER 14:24
DX: Z48.89 Encounter for other specified surgical aftercare (principal); W49.04XA Ring or other jewelry causing external constriction, initial encounter; I10 Essential (primary) hypertension; K21.9 Gastro-esophageal reflux disease without esophagitis

== ENCOUNTER → 2019-12-28 | Emergency (ER) | payer MEDICAID ==
[~2019-12-28] VITALS: Ht 193 cm; Wt 79.5 kg
[~2019-12-28] MED LIST changes: +CLINDAMYCIN HC150 MG PO
[2019-12-28 07:47] VITALS: BP 102/55; Ht 193 cm; Wt 79.5 kg
== END | disposition home or self-care (01) ==
LOC: D.ER 07:27
DX: H00.036 Abscess of eyelid left eye, unspecified eyelid (principal); H00.019 Hordeolum externum unspecified eye, unspecified eyelid; I10 Essential (primary) hypertension; K21.9 Gastro-esophageal reflux disease without esophagitis; Z72.0 Tobacco use